=== PATIENT | male | born 1950 | race Caucasian/White ===

== ENCOUNTER 2019-04-20 07:30 | Inpatient (IN) | payer MEDICARE ==
[2019-06-09] MEDS ORDERED: Buffered Lidocaine 1% SYRIN* 1 ML/SYRINGE INTRADERM ONE (13:08)
--- OUTSIDE RECORDS SUMMARY | 2019-06-10 05:36 | XMS REPORT | Continuity of Care Document ---
:1950 External Reference #:[id number] Author Name Abbey Cameron MD (transmitted by agent of provider Adele Jackson ) Address [address] [place] [address] Care Team Providers Name Role Phone Danny Medina P.A. 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 Problems Description No Information Available Social History Type Date Description Comments Sex Unknown ETOH Use Denies alcohol use Tobacco Use Start: Unknown End: Patient is a former smoker Unknown Smoking Status Reviewed: 05/19/19 Patient is a former smoker Exercise Type/Frequency Does not exercise Allergies, Adverse Reactions, Alerts Description No Known Drug Allergies Medications Active Medications SIG Qnty Indications Ordering Provider Date Tlso Brace When out of bed M43.16 Abbey 04/07/2019 after surgery MD Rakesh Orphenadrine Citrate 1 by mouth twice Unknown ER a day as needed 100mg Tablets ER 12HR Oxycodone HCL 1 tab by mouth Unknown 10mg tid as needed Tablets Voltaren apply 2 grams Unknown 1% Gel four times daily as needed Gabapentin 1 by mouth tid Unknown 300mg Capsules Viagra use as needed Unknown 100mg Tablets Trazodone HCL take 2 every Unknown 100mg night at bedtime. Tablets Amlodipine Besylate 1 by mouth every Unknown 10mg day Tablets Zoloft 1 by mouth every Unknown 100mg Tablets day Immunizations Description No Information Available Vital Signs Date Vital Result Comment 05/19/2019 11:07am Height 68 inches 5'8" Weight 180.00 lb Heart Rate 80 /min BP Systolic 120 mmHg BP Diastolic 80 mmHg Pain Level 8 mid back burning feeling BMI (Body Mass Index) 27.4 kg/m2 04/07/2019 11:45am Height 68 inches 5'8" Weight 185.00 lb Heart Rate 91 /min BP Systolic 98 mmHg BP Diastolic 66 mmHg Respiratory Rate 16 /min Pain Level 5 BMI (Body Mass Index) 28.1 kg/m2 Results Test Acquired Date Facility Test Result H/L Range Note Laboratory test 04/15/2019 [facility] Glucose 94 mg/dL Normal 70-100 finding [address] [place] [address] [phone] CBC No Diff 04/13/2019 [facility] White Blood 10.8 Normal 3.5- 10.8 101 [facility] Count 10^3/[place] [address] [phone] Red Blood Count 5.12 10^6/uL Normal 4.18-5.48 Hemoglobin 16.2 g/dL Normal 14.0-18.0 Hematocrit 46 % Normal 42-52 Mean Corpuscular Volume 89 fL Normal 80-94 Mean Corpuscular Hemoglobin 32 pg High 27-31 Mean Corpuscular HGB Conc 36 g/dL Normal 31-36 Red Cell Distribution Width 16 % High 10-15 Platelet Count 209 10^3/uL Normal 150-450 Mean Platelet Volume 9.6 fL Normal 7.4-10.4 Inr/Protime 04/13/2019 [facility] Inr 0.95 Normal 0.82-1.09 1 [address] [place] [address] [phone] Laboratory test 04/13/2019 [facility] Partial 35.3 Normal 26.0 -38.0 finding 101 [facility] [place] [place] [address] Time PTT [phone] Urinalysis 04/13/2019 [facility] Urine Color Ashley Profile [address] [place] [address] [phone] Urine Appearance Clear Urine Specific [place] 1.023 Normal 1.010-1.030 Urine pH 5.0 Normal 5-9 Urine Urobilinogen Negative Negative Urine Ketones Trace Abnormal Negative Urine Protein 1+(30 mg/dL) Abnormal Negative Urine Leukocytes Negative Negative Urine Blood Negative Negative Urine Nitrite Negative Negative Urine Bilirubin Negative Negative Urine Glucose Negative Negative Urine White Blood Cell Trace(0-5/hpf) Absent Urine Red Blood Cell Trace(0-2/hpf) Absent Urine Bacteria Absent Absent Urine Squamous Epithelial Cell Present Abnormal Absent Urine Calcium Carbonate Cryst Present Abnormal Absent Type & Screen 04/13/2019 [facility] Patient Blood Type O Negative [address] [place] [address] [phone] Antibody Screen NEGATIVE Basic Metabolic 04/13/2019 [facility] Sodium 140 mmol/L Normal 135-[address] [place] [address] [phone] Potassium 3.9 mmol/L Normal 3.5-5.0 Chloride 107 mmol/L Normal 101-111 Co2 Carbon Dioxide 28 mmol/L Normal 22-32 Anion Gap 5 mmol/L Normal 2-11 Blood Urea Nitrogen 17 mg/dL Normal 6-24 Creatinine 0.94 mg/dL Normal 0.67-1.17 BUN/Creatinine Ratio 18.1 Normal 8-20 Calcium 9.4 mg/dL Normal 8.6-10.3 Egfr Non- 80.0 >60 Egfr 96.9 >60 2 Glucose 38 mg/dL Critical low 70-100 3 Urine Culture And 04/13/2019 [facility] Urine Culture SEE RESULT [address] [place] [address] [phone] Xray 12/21/2018 [facility]g Spine Entire < pending> [address] Ap/[place] [address] [phone] SP Lumbar Ap//Lat 2-3 Views <pending> CT Spine Lumbar W/O <pending> 1 Standard intensity warfarin therapeutic range: 2.0-3.0 High intensity warfarin therapeutic range: 2.5-3.5 2 Because ethnic data is not always readily available, this report includes an eGFR for both -Americans and non- Americans. The National Kidney Disease Education Program (NKDEP) does not endorse the use of the MDRD equation for patients that are not between the ages of 18 and 70, are , have extremes of body size, muscle mass, or nutritional status, or are non- or non-. According to the National Kidney Foundation, irrespective of diagnosis, the stage of the disease is based on the level of kidney function: Stage Description GFR(mL/min/1.73 m(2)) 1 Kidney damage with normal or decreased GFR 90 2 Kidney damage with mild decrease in GFR 60-89 3 Moderate decrease in GFR 30-59 4 Severe decrease in GFR 15-29 5 Kidney failure <15 (or dialysis) 3 Critical Result GLU:[address] CAMERON at: 17:22:07 by:[email or web address] Read back by:DR CAMERON 4 SEE RESULT BELOW Name: RANDELL KC : [address]: Abbey Cameron MD Acct: [id number] Unit: [id number] AGE: 68 Location: [facility] Re04/13/19 SEX: M Status: REG REF SPEC: [id number] CALEB: 04/13/[address]: Abbey Cameron MD REQ: [id number] RECD: 04/13/19 STATUS: COMP _ SOURCE: URINE SPDESC: ORDERED: Urine Culture Procedure Result Reported Site Urine Culture Final 10/23/19- 1228 ML No Growth (<1,000 CFU/mL) * ML - Main Lab . END OF REPORT DEPARTMENT OF PATHOLOGY, [address] [place] [address] Fabian Garcia M.D. Director [facility] # [id number] Procedures Description No Information Available Medical Devices Description No Information Available Encounters Type Date Location Provider Dx Diagnosis Office Visit 04/07/2019 Neurosurgery [facility] M43.16 Spondylolisthesi 11:30a [facility] MD Rakesh s, lumbar region M48.062 Spinal stenosis, lumbar region with neurogenic claudication Assessments Date Code Description Provider 05/19/2019 M43.16 Spondylolisthesis, lumbar region Abbey Cameron MD 05/19/2019 M48.062 Spinal stenosis, lumbar region with Abbey Cameron MD neurogenic claudication 04/08/2019 M43.16 Spondylolisthesis, lumbar region Abbey Cameron MD 04/08/2019 M48.062 Spinal stenosis, lumbar region with Abbey Cameron MD neurogenic claudication 04/07/2019 M43.16 Spondylolisthesis, lumbar region Abbey Cameron MD 04/07/2019 M48.062 Spinal stenosis, lumbar region with Abbey Cameron MD neurogenic claudication Plan of Treatment Future Appointment(s):06/18/2019 3:00 pm - Abbey Cameron MD at [facility]09/15/2019 1:00 pm - Abbey Cameron MD at [facility]07/16/2019 11:00 am - Abbey Cameron MD at [facility]06/14/2019 7:30 am - Abbey Cameron MD at [facility]05/19/2019 - Vassilmarilu Cameron, MDM43.16 Spondylolisthesis, lumbar [id number] Spinal stenosis, lumbar region with neurogenic claudication Functional Status Description No Information Available Mental Status Description No Information Available Referrals Description No Information Available
--- OUTSIDE RECORDS SUMMARY | 2019-06-10 05:36 | XMS REPORT | Continuity of Care Document ---
:1950 External Reference #:[id number] Author Name Adrian Mckeon DO, MPH Address [address] [place] [address], [address] [place] [address] Care Team Providers Name Role Phone Naomie Worrell FNP - Family Care Team Information [employer] [facility] Problems Description No Information Available Social History Type Date Description Comments Sex Unknown Cigarette Use Current Cigarette Smoker 1/2 Pack Daily ETOH Use Rarely consumes alcohol Tobacco Use Start: Unknown End: Unknown Patient is a former smoker Smoking Status Reviewed: 04/23/19 Patient is a former smoker Allergies, Adverse Reactions, Alerts Description No Known Drug Allergies Medications Active Medications SIG Qnty Indications Ordering Provider Date Celebrex si by mouth 30caps Adrian Mckeon DO, 02/23/2019 200mg Capsules daily as directed MPH chronic pain patient Gabapentin si by mouth 90caps Adrian Mckeon DO, 04/23/2018 300mg three times a day MPH Capsules as directed Oxycodone HCL si by mouth 90tabs Adrian Mckeon DO, 11/03/2013 10mg every 8 hours as MPH Tablets directed chronic pain patient Orphenadrine Citrate si by mouth 60tabs Adrian Mckeon DO, 06/04/2013 ER q12hrs as MPH 100mg Tablets ER directed chronic 12HR pain patient Amlodipine Besylate 1 by mouth daily Unknown 10mg Tablets Mapap Unknown 325mg Tablets Trazodone HCL si by mouth Unknown 100mg every night at Tablets bedtime as directed History Medications Oxycodone HCL si-2 by mouth 180tabs Adrian Mckeon, 02/23/2019 - 5mg every 4 to 6 hours DOPAMELA 04/23/2019 Tablets as directed chronic pain patient Immunizations Description No Information Available Vital Signs Date Vital Result Comment 04/23/2019 10:28am BP Systolic 132 mmHg BP Diastolic 84 mmHg Heart Rate 86 /min Respiratory Rate 20 /min Height 70 inches 5'10" Weight 18.00 lb Pain Level 7 Pain at this time. Pain Level With Medicine 6 on average with meds Pain Level Without Medicine 9 without meds BMI (Body Mass Index) 2.6 kg/m2 03/25/2019 9:18am BP Systolic 136 mmHg BP Diastolic 86 mmHg Heart Rate 84 /min Respiratory Rate 20 /min Height 70 inches 5'10" Weight 182.00 lb Pain Level 7 Pain at this time. 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 Office Visit 02/23/2019 9:15a Main Office as Adrian Mckeon G89.21 Chronic pain due Of 07/24/13 DO, MPH to trauma M54.16 Radiculopathy, lumbar region M54.5 Low back pain 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 Z79.891 group home (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 Office Visit 01/21/2019 9:30a Main Office as Adrian Mckeon G89.21 Chronic pain due Of 07/24/13 DO, MPH to trauma M54.16 Radiculopathy, lumbar region M54.5 Low back pain M99.03 Segmental and somatic dysfunction of lumbar region Z79.891 group home (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 Office Visit 12/22/2018 9:15a Main Office as MckeonAdrian perez, G89.21 Chronic pain due Of 07/24/13 DO, MPH to trauma M54.16 Radiculopathy, lumbar region M54.5 Low back pain 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 Office Visit 11/20/2018 9:15a Main Office as MckeonAdrian perez, G89.21 Chronic pain due Of 07/24/13 DO, MPH to trauma M54.5 Low back pain M54.16 Radiculopathy, lumbar region 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 Assessments Date Code Description Provider 04/23/2019 G89.21 Chronic pain due to trauma Mckeon, Adrian, DO, MPH 04/23/2019 M54.16 Radiculopathy, lumbar region Mckeon, Adrian, DO, MPH 04/23/2019 Z79.891 group home (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 Mckeon, Adrian , DO, MPH 04/23/2019 Z79.891 group home (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 Mckeon, Adrian , DO, MPH 03/25/2019 G89.21 Chronic pain due to trauma Mckeon, Adrian, DO, MPH 03/25/2019 M54.16 Radiculopathy, lumbar region Mckeon, Adrian, DO, MPH 03/25/2019 M54.5 Low back pain Mckeon, Adrian, DO, MPH 03/25/2019 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 Mckeon, Adrian , DO, MPH 03/25/2019 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 Mckeon, Adrian , DO, MPH 02/23/2019 G89.21 Chronic pain due to trauma Mckeon, Adrian, DO, MPH 02/23/2019 M54.16 Radiculopathy, lumbar region Mckeon, Adrian, DO, MPH 02/23/2019 M54.5 Low back pain Mckeon, Adrian, DO, MPH 02/23/2019 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 Mckeon, Adrian , DO, MPH 02/23/2019 Z79.891 group home (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 Mckeon, Adrian , DO, MPH 01/21/2019 G89.21 Chronic pain due to trauma Mckeon, Adrian, DO, MPH 01/21/2019 M54.16 Radiculopathy, lumbar region Mckeon, Adrian, DO, MPH 01/21/2019 M54.5 Low back pain Mckeon, Adrian, DO, MPH 01/21/2019 M99.03 Segmental and somatic dysfunction of lumbar Mckeon, Adrian, DO, MPH region 01/21/2019 Z79.891 group home (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 Mckeon, Adrian , DO, MPH 01/21/2019 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 Mckeon, Adrian , DO, MPH 12/22/2018 G89.21 Chronic pain due to trauma Mckeon, Adrian, DO, MPH 12/22/2018 M54.16 Radiculopathy, lumbar region Mckeon, Adrian, DO, MPH 12/22/2018 M54.5 Low back pain Mckeon, Adrian, DO, MPH 12/22/2018 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 Mckeon, Adrian , DO, MPH 12/22/2018 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 Mckeon, Adrian , DO, MPH 11/20/2018 G89.21 Chronic pain due to trauma Mckeon, Adrian, DO, MPH 11/20/2018 M54.5 Low back pain Mckeon, Adrian, DO, MPH 11/20/2018 M54.16 Radiculopathy, lumbar region Mckeon, Adrian, DO, MPH 11/20/2018 Z79.891 group home (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 Mckeon, Adrian , DO, MPH 11/20/2018 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 Symptoms and complaints discussed and reviewed today. No significant changes in physical findings. Continue current medical pain management.M54.16 Radiculopathy, lumbar regionComments:Chronic. Symptoms and complaints discussed and reviewed today. No changes in physical findings; patient is stable on current medical therapy.Z79.891 group home (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New Labs:Urine Drug Screen, Ordered: 04/23/19Comments:Urine drug screen sample taken. Rapid Point of Care Cup was reviewed in office with patient. Will send out UDT Rapid to [facility] lab for confirmation testing. Urine Drug Testing (UDT) was done today to monitor opiate use and to monitor possible use of illicit substances. I will discuss the results at the next appointment from the Quantitative lab.The following tests were ordered:6 AM, AMPH, KAREN, ART, BUP, CARIS, COCM, ETG, FENT, MCSHSG, OPI, OXY, PCP, TAPEN, XTSY, ZOLP. A urine drug test (UDT) using a rapid screen cup was ordered for this patient and collected on site today. Creatinine has been ordered as well for specimen validity, not for kidney function. Urine Drug Testing is a mandatory component of chronic opioid management, as part of the baseline assessment and ongoing re-assessment of opioid therapy. Per [place] [employer], [place] Non-Acute Pain Medical Treatment Guidelines, section F.3.d.i. This test is to be used in conjunction with other clinical information when decisions are to be made to continue, adjust or discontinue treatment. This information includes clinical observation, results of addiction screening, pill counts, and prescription drug monitoring reports. Preliminary UDT screen results are not final and should not be used to determine patient care or plan of treatment. This sample will be sent out for a more comprehensive quantitative confirmation LCMS study. It is part of the treatment process of prescribing controlled substances and is considered standard of care at this clinic.AllComments:Continue current medical pain management; injection therapy, osteopathic manipulation, PT / modalities, and consults as needed to manage chronic pain.Non - opioid pain management discussed and optionsdiscussed.Side effects discussed; anticipatory guidance given. Patient clearly understand and agree with all medical treatments and suggestions. All medicines prescribed are adequate and appropriate for this patient's complaint of pain, medical history, physical, and personal goals.Goals of Treatment are to provide adequate and appropriate multidisciplinary medical pain management to increase/ maintain patient's quality of life and functionality while maintaining satisfactory side effect profile andminimizing shelter end-organ damage. Importance of regular nutrition throughout the day discussed.Activity as toleratedContinue with PCP Functional Status Description No Information Available Mental Status Description No Information Available Referrals Description No Information Available
--- OUTSIDE RECORDS SUMMARY | 2019-06-10 05:36 | XMS REPORT | Continuity of Care Document ---
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 Medicine Problems Description No Information Available Social History Type Date Description Comments Sex Unknown Cigarette Use Current Cigarette Smoker 1/2 Pack Daily ETOH Use Rarely consumes alcohol Tobacco Use Start: Unknown End: Unknown Patient is a former smoker Smoking Status Reviewed: 05/31/19 Patient is a former smoker Allergies, Adverse [...] - 5mg every 4 to 6 hours PAMELA FOURNIER 04/23/2019 Tablets as directed chronic pain patient Immunizations Description No Information Available Vital Signs Date Vital Result Comment 05/31/2019 9:13am BP Systolic 128 mmHg BP Diastolic 74 mmHg Heart Rate 76 /min Respiratory Rate 20 /min Height 70 inches 5'10" Weight 194.00 lb Pain Level 7 Pain at this time. Pain Level With Medicine 5 on average with meds Pain Level Without Medicine 9 without meds BMI (Body Mass Index) 27.8 kg/m2 04/23/2019 10:28am BP Systolic 132 mmHg BP Diastolic 84 mmHg Heart Rate 86 /min Respiratory Rate 20 /min Height 70 inches 5'10" Weight 18.00 lb Pain Level 7 Pain at this time. Pain Level With Medicine 6 on average with meds Pain Level Without Medicine 9 without meds BMI (Body Mass Index) 2.6 kg/m2 Results Description No Information Available Procedures Date Code Description Status 01/21/2019 88511 Omt 1-2 Body Regions Completed Medical Devices Description No Information Available Encounters Type Date Location Provider Dx Diagnosis Office Visit 04/23/2019 Main Office as Of Adrian Mckeon DO G89.21 Chronic pain due 10:45a 07/24/13 MPH to trauma M54.16 Radiculopathy, lumbar region Z79.891 [facility] (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 Z79.891 [facility] (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 Office Visit 03/25/2019 9:30a Main Office as Adrian Mckeon G89.21 Chronic pain due Of 07/24/13 DO MPH to trauma M54.16 Radiculopathy, lumbar region M54.5 Low back pain Z79.891 [facility] (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 Z79.891 [facility] (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 Office Visit 02/23/2019 9:15a Main Office as Adrian Mckeon G89.21 Chronic pain due Of 07/24/13 DO, MPH to trauma M54.16 Radiculopathy, lumbar region M54.5 Low back pain Z79.891 [facility] (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 Z79.891 [facility] (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 Office Visit 01/21/2019 9:30a Main Office as MckeonAdrian perez, G89.21 Chronic pain due Of 07/24/13 DO, MPH to trauma M54.16 Radiculopathy, lumbar region M54.5 Low back pain M99.03 Segmental and somatic dysfunction of lumbar region Z79.891 [facility] (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 Z79.891 [facility] (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 Office Visit 12/22/2018 9:15a Main Office as Adrian Mckeon G89.21 Chronic pain due Of 07/24/13 DO, MPH to trauma M54.16 Radiculopathy, lumbar region M54.5 Low back pain Z79.891 [facility] (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 Z79.891 [facility] (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 Assessments Date Code Description Provider 05/31/2019 G89.21 Chronic pain due to trauma Mckeon, Adrian, DO, MPH 05/31/2019 M54.16 Radiculopathy, lumbar region Mckeon, Adrian, DO, MPH 05/31/2019 Z79.891 [facility] (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 Mckeon, Adrian , DO, MPH 05/31/2019 Z79.891 [facility] (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 Mckeon, Adrian , DO, MPH 04/23/2019 G89.21 Chronic pain due to trauma Mckeon, Adrian, DO, MPH 04/23/2019 M54.16 Radiculopathy, lumbar region Mckeon, Adrian, DO, MPH 04/23/2019 Z79.891 [facility] (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 Mckeon, Adrian , DO, MPH 04/23/2019 Z79.891 [facility] (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 Mckeon, Adrian , DO, MPH 03/25/2019 G89.21 Chronic pain due to trauma Mckeon, Adrian, DO, MPH 03/25/2019 M54.16 Radiculopathy, lumbar region Mckeon, Adrian, DO, MPH 03/25/2019 M54.5 Low back pain Mckeon, Adrian, DO, MPH 03/25/2019 Z79.891 [facility] (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 Mckeon, Adrian , DO, MPH 03/25/2019 Z79.891 [facility] (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 Mckeon, Adrian , DO, MPH 02/23/2019 G89.21 Chronic pain due to trauma Mckeon, Adrian, DO, MPH 02/23/2019 M54.16 Radiculopathy, lumbar region Mckeon, Adrian, DO, MPH 02/23/2019 M54.5 Low back pain Mckeon, Adrian, DO, MPH 02/23/2019 Z79.891 [facility] (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 Mckeon, Adrian , DO, MPH 02/23/2019 Z79.891 [facility] (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 Mckeon, Adrian , DO, MPH 01/21/2019 G89.21 Chronic pain due to trauma Mckeon, Adrian, DO, MPH 01/21/2019 M54.16 Radiculopathy, lumbar region Mckeon, Adrian, DO, MPH 01/21/2019 M54.5 Low back pain Mckeon, Adrian, DO, MPH 01/21/2019 M99.03 Segmental and somatic dysfunction of lumbar Mckeon, Adrian, DO, MPH region 01/21/2019 Z79.891 [facility] (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 Mckeon, Adrian , DO, MPH 01/21/2019 Z79.891 [facility] (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 Mckeon, Adrian , DO, MPH 12/22/2018 G89.21 Chronic pain due to trauma Mckeon, Adrian, DO, MPH 12/22/2018 M54.16 Radiculopathy, lumbar region Mckeon, Adrian, DO, MPH 12/22/2018 M54.5 Low back pain Mckeon, Adrian, DO, MPH 12/22/2018 Z79.891 [facility] (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 Mckeon, Adrian , DO, MPH 12/22/2018 Z79.891 [facility] (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 Mckeon, Adrian , DO, MPH Plan of Treatment Future Appointment(s):06/29/2019 9:15 am - Adrian Mckeon DO, MPH at Main Office as Of 07/24/1411 Adrian Kelley DO, MPHG89.21 Chronic pain due to traumaComments:Chronic. Symptoms and complaints discussed and reviewed today. No significant changes in physical findings. Continue current medical pain management.M54.16 Radiculopathy, lumbar regionComments:Chronic. Symptoms and complaints discussed and reviewed today. No changes in physical findings; patient is stable on current medical therapy.Z79.891 [facility] (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New Labs:Urine Drug Screen, Ordered: 05/31/19Comments:Urine drug screen sample taken. Rapid Point of [...] and ongoing re-assessment of opioid therapy. Per [place] [employer], [place] Non-Acute Pain Medical Treatment Guidelines, section F.3.d.i. [...] while maintaining satisfactory side effect profile andminimizing chcf end-organ damage. Importance of regular nutrition throughout the day discussed.Activity as toleratedContinue with PCP Functional Status Description No Information Available Mental Status Description No Information Available Referrals Description No Information Available
[2019-06-10] MEDS ORDERED: Lactated Ringers 1000 ML Bag* 1,000 ML IV SCH (06:00)
[2019-06-10] MEDS ORDERED: Acetaminophen TAB* 325 MG PO ONE (06:00)
[2019-06-10] MEDS ORDERED: Acetaminophen TAB* 325 MG ONE (06:23)
[2019-06-10] MEDS ORDERED: Buffered Lidocaine 1% SYRIN* 1 ML/SYRINGE INTRADERM ONE (06:23)
[2019-06-10] MEDS ORDERED: ceFAZolin 2 GM in NS PREMIX(*) 2 GM/100 ML BAG IVPB ONE (06:23)
[2019-06-10] MEDS ORDERED: Bupivacaine 0.25% EPI 200,000* 30 ML SDV ONE (06:34)
[2019-06-10] MEDS ORDERED: Bacitracin INJECTION* 50,000 UNITS ONE (06:34)
[2019-06-10] MEDS ORDERED: fentaNYL* 50 MCG/ML 5 ML VIAL (250 MCG VIAL) ONE (07:05)
[2019-06-10] MEDS ORDERED: Midazolam* 1 MG/ML 2 ML VIAL (2 MG) ONE (07:05)
[2019-06-10] MEDS ORDERED: Succinylcholine* 20 MG/ML 10 ML VIAL ONE (07:06)
[2019-06-10] MEDS ORDERED: Propofol* 10 MG/ML 20 ML BTL ONE (07:06)
[2019-06-10] MEDS ORDERED: Propofol* 500 MG/50 ML BTL ONE (07:06)
[2019-06-10] MEDS ORDERED: Lidocaine 2% PF * 5 ML VIAL ONE (07:06)
[2019-06-10] MEDS ORDERED: Remifentanil* 2 MG VIAL ONE (07:07)
[2019-06-10] MEDS ORDERED: Artificial Tear OPHTH.OINT* 3.5 GM ONE (07:21)
[2019-06-10] MEDS ORDERED: Propofol* 1,000 MG/100 ML BTL ONE (07:22)
[2019-06-10] MEDS ORDERED: KETAMINE HCL* 50 MG/ML 10 ML VIAL ONE (07:55)
[2019-06-10] MEDS ORDERED: EPHEDrine (Pressors)* 50 MG/ML VIAL ONE ×2 (08:22→09:07)
[2019-06-10] MEDS ORDERED: Phenylephrine 10 MG/ML VIAL* 1 ML VIAL ONE (09:07)
[2019-06-10] MEDS ORDERED: diPHENhydraMINE IV* 50 MG/ML 1 ml VIAL (BENADRYL) IV PRN (10:04)
[2019-06-10] MEDS ORDERED: PROCHLORPERAZINE INJ 5 MG/ML 2 ML VIAL IV PRN (10:04)
[2019-06-10] MEDS ORDERED: oxyCODONE TAB* 5 MG TAB PO PRN ×3 (10:04→14:44)
[2019-06-10] MEDS ORDERED: Naloxone* 0.4 MG/ML 1 ML VIAL IV PRN (10:04)
[2019-06-10] MEDS ORDERED: Ondansetron INJ* 2 MG/ML VIAL IV PRN ×2 (10:04→13:00)
[2019-06-10] MEDS ORDERED: Gabapentin CAP(*) 300 MG PO ONE (10:07)
[2019-06-10] MEDS ORDERED: HYDROmorphone INJ1* 1 MG/ML SYRINGE ONE ×3 (10:10→13:18)
[2019-06-10] MEDS ORDERED: Ketorolac INJ* 30 MG/ML 1 ML VIAL ONE (11:46)
[2019-06-10] MEDS ORDERED: Ondansetron INJ* 2 MG/ML VIAL ONE ×2 (11:46→13:18)
[2019-06-10] MEDS ORDERED: Acetaminophen TAB* 325 MG PO PRN (13:00)
[2019-06-10] MEDS ORDERED: Magnesium Hydroxide LIQ* 30 ML UDC PO PRN (13:00)
[2019-06-10] MEDS ORDERED: Gabapentin CAP(*) 300 MG ONE (13:01)
[2019-06-10] MEDS ORDERED: oxyCODONE SR TAB(*) 10 MG TAB.SR ONE (13:01)
[2019-06-10] MEDS ORDERED: Ondansetron ODT TAB* 4 MG ONE (13:02)
[2019-06-10] MEDS: HYDROmorphone INJ1* 1 MG/ML SYRINGE IV PRN ×2 (13:23→14:24)
[2019-06-10] MEDS ORDERED: Albuterol HFA INHALER* 8 gm MDI INH PRN (13:54)
--- NOTE | 2019-06-10 14:31 | CONSULT ---
Consult Consult: INPATIENT PAIN CONSULTATION Karen Og is a 69 year old male. He has had back pain for the past 40 years. He had an episode of discitis and had an L3/4 fusion in 1996. He was started on opioids several years ago, at least 5, possibly longer. He currently sees Dr. Adrian Mckeon. Prior to his hospitalization, he was on oxycodone 10 mg three times a day. He also took Norflex 100 mg BID and gabapentin 300 TID. This past summer, he developed severe pain in his low back radiating down his left leg. He began to need a cane to walk. He saw his doctor and eventually had an MRI of his lumbar spine which showed a listhesis at L4/5 with significant neural foraminal stenosis bilaterally. He was admitted to [facility] June 10, 2019 and had a left L4/5 MIS TLIF with PEK interbody cage. I am asked to see him to assist in pain management. PAST MEDICAL HISTORY: COPD, Depression Allergies Allergy/AdvReac Type Severity Reaction Status Date / Time No Known Allergies Allergy Verified 06/10/19 06:21 Current Medications Acetaminophen (Tylenol Tab*) 975 mg PO ONCE ONE Stop: 06/10/19 06:01 Last Admin: 06/10/19 06:28 Dose: 975 mg Acetaminophen (Tylenol Tab*) 650 mg PO Q4H PRN PRN Reason: MILD PAIN or TEMP > 100.4 Albuterol (Ventolin Hfa Inhaler*) 2 puff INH BID PRN PRN Reason: SOB/WHEEZING Diphenhydramine HCl (Benadryl Iv*) 25 mg IV ONCE PRN PRN Reason: ITCHING Gabapentin (Neurontin Cap(*)) 300 mg PO ONCE ONE Stop: 06/10/19 10:08 Last Admin: 06/10/19 13:06 Dose: 300 mg Gabapentin (Neurontin Cap(*)) 300 mg PO TID PRANAV Hydromorphone HCl (Dilaudid Inj1s*) 0.5 mg IV Q10M PRN PRN Reason: PAIN - SEVERE Last Admin: 06/10/19 14:24 Dose: 0.5 mg Lactated Ringer's (Lactated Ringers 1000 Ml Bag*) 1,000 mls @ 125 mls/hr IV PER RATE PRANAV Last Admin: 06/10/19 06:28 Dose: 125 mls/hr Lidocaine/Sodium Bicarbonate (Buffered Lidocaine 1% Syrin*) 0.2 ml INTRADERM ONCE ONE Stop: 06/09/19 13:09 Last Admin: 06/10/19 06:25 Dose: 0.2 ml Magnesium Hydroxide (Milk Of Magncait Liq*) 30 ml PO DAILY PRN PRN Reason: CONSTIPATION Naloxone HCl (Narcan*) 0.08 mg IV Q2M PRN PRN Reason: severe induced resp depression Ondansetron HCl (Zofran Inj*) 4 mg IV ONCE PRN PRN Reason: NAUSEA/VOMITING Last Admin: 06/10/19 13:21 Dose: 4 mg Ondansetron HCl (Zofran Inj*) 4 mg IV Q6H PRN PRN Reason: NAUSEA/VOMITING Oxycodone HCl (Roxycodone Tab*) 20 mg PO ONCE PRN PRN Reason: SEVERE PAIN Oxycodone HCl (Roxycodone Tab*) 10 mg PO Q6H PRN PRN Reason: PAIN - MODERATE Prochlorperazine Edisylate (Compazine Inj*) 5 mg IV ONCE PRN PRN Reason: NAUSEA/VOMITING Sertraline HCl (Zoloft*) 100 mg PO QAM PRANAV SOCIAL HISTORY: Non smoker, non drinker, occasional marijuana use. Lives alone in a 1 level apartment, a few steps to enter. Has a son in [facility], he lives in [place]. ROS: Denies CP. Last BM was last night Vital Signs Temp Pulse Resp BP Pulse Ox 97.3 F 96 18 122/77 97 06/10/19 12:30 06/10/19 14:15 06/10/19 14:24 06/10/19 14:15 06/10/19 14:15 EXAM: GENERAL: Minimal distress LUNGS: Clear bilaterally HEART: Reg rhythm ABDOMEN: Soft EXTREMITIES: Normal tone NEUROLOGIC: Sensation appears intact. Able to move 4 extremities ASSESSMENT: 1. Left L4/5 MIS TLIF with PEEK interbody Cage 2. Chronic opioid use PLAN: I will increase his oxycodone to 15 mg Q4 PRN. I will add a muscle relaxant, preferably orphenadrine. He has gabapentin ordered. I will add bowel medications. I will follow.
[2019-06-10] MEDS ORDERED: Methocarbamol TAB* 500 MG PO PRN (14:44)
[2019-06-10] MEDS ORDERED: Senna TAB 8.6 mg* TAB PO PRN (14:45)
[2019-06-10] MEDS: Gabapentin CAP(*) 300 MG PO SCH ×2 (15:25→21:20)
[2019-06-10] MEDS: oxyCODONE TAB* 5 MG TAB PO PRN ×2 (16:05→21:21)
--- NOTE | 2019-06-10 16:54 | CONS ---
HOSPITAL MEDICINE CONSULTATION REPORT: DATE OF CONSULT: 06/10/19 PROVIDER: Ya Pickett NP ATTENDING PHYSICIAN WHILE IN THE HOSPITAL: Dr. Cameron. CONSULTING PHYSICIAN: Dr. Enrique Katz (dictated by Ya Pickett NP). REASON FOR CONSULT: Co-management of chronic medical conditions. HISTORY OF PRESENT ILLNESS: Mr. Og is a 69-year-old male with a past medical history significant for COPD, hypertension, depression, spinal stenosis , who presented to [facility] for an elective left L4-L5 MIS TLIF with PEEK cage, iliac bone graft and DBX, pedicle screws. Please see dictated H and P from Dr. Cameron for complete details. In brief, the patient had ongoing pain, failed conservative measures; therefore, opted for a left L4-L5 MIS TLIF with PEEK cage with Dr. Cameron. In the immediate preoperative period, the patient had no complaints. In the immediate post-operative period, the patient complains of mild lower back pain. He denies any recent fever, chills, nausea, vomiting, diarrhea. Denies any abdominal pain. Denies any urinary frequency, urgency, or pain with urination. Denies any cough, congestion, or shortness of breath. Denies any chest pain. Due to the patient's history of hypertension and COPD, Hospital Medicine was asked to co-manage his care during this hospitalization. PAST MEDICAL HISTORY: Significant for: 1. COPD. 2. Hypertension. 3. Depression. 4. Sleep disorder. 5. Spinal stenosis. 6. Psoriasis. 7. Spondylolisthesis. PAST SURGICAL HISTORY: 1. Appendectomy. 2. Tonsillectomy. 3. Cholecystectomy. 4. History of L3-4 fusion. 5. History of neck surgery. HOME MEDICATIONS: Include: 1. Orphenadrine citrate ER 100 mg b.i.d. p.r.n. 2. Oxycodone 10 mg t.i.d. p.r.n. 3. Voltaren gel 1%, 2 g 4 times daily. 4. Gabapentin 300 mg p.o. t.i.d. 5. Viagra as needed. 6. Trazodone 200 mg at bedtime. 7. Amlodipine 10 mg p.o. daily. 8. Zoloft 100 mg p.o. daily. 9. Ventolin HFA inhaler 2 puffs every 4 hours as needed for shortness of breath. ALLERGIES: No known drug allergies. FAMILY HISTORY: No reported history of coronary artery disease or cancer. Mother with a history of diabetes. SOCIAL HISTORY: The patient is . He lives alone. He quit smoking approximately 50 years ago. He reports he only smoked for a couple of years. Denies any alcohol use. Does report occasional marijuana use. Surrogate decision maker in the event he is unable to make his own decisions is his son, Umberto or friend, Gael. He is a full code. REVIEW OF SYSTEMS: A 14-point review of systems was completed. All pertinent positives were mentioned in the HPI. PHYSICAL EXAM: General: At this time, Mr. Og is alert and oriented, resting on the stretcher in PACU. He is in no acute distress. Vital Signs: Blood pressure 122/77, heart rate 96, respirations are 18, O2 saturation 97%, temperature was 97.3. HEENT: Head is atraumatic, normocephalic. Eyes: EOMs are intact. Sclerae anicteric and not pale. Oral mucosa moist. Neck is supple. Lungs are clear to auscultation bilaterally. No wheezes, rales, or rhonchi. Cardiac: S1, S2. Regular rate and rhythm. No murmurs, rubs, or gallops. The abdomen is soft and nontender. Bowel sounds are present x4. Extremities: He is able to move all 4 extremities. Pedal pulses are +2 bilaterally. Radial pulses are +2 bilaterally. Sensation is intact to all 4 extremities. There is no clubbing or cyanosis. Neurologic: He is awake, alert , oriented x3. Speech is clear. Thought process is intact. There are no gross focal deficits. Skin: He does have a dressing that is dry and intact to his lower back. DIAGNOSTIC STUDIES/LAB DATA: CBC from 05/31/19: WBCs were 11.3, RBCs 4.54, hemoglobin 14.0, hematocrit was 41, platelet count was 225. INR was 0.98. Sodium 136, potassium 3.9, chloride 102, carbon dioxide was 28, anion gap of 6, BUN was 15, creatinine 1.06, glucose was 73, calcium 9.4. Urine was within normal limits with exception specific gravity was 1.006. IMPRESSION AND PLAN: Mr. Og is a 69-year-old male with a past medical history significant for hypertension, chronic obstructive pulmonary disease, depression, spinal stenosis, who presented for an elective L4-L5 MIS TLIF with PEEK cage with Dr. Cameron. Our recommendations are as follows: 1. Status post L4-L5 MIS TLIF with PEEK cage. Management per Neurosurgery. PT /OT per Neurosurgery. Pain management per Neurosurgery. 2. Hypertension. I will hold his amlodipine at this time. We will monitor his blood pressure and resume as able. 3. Chronic obstructive pulmonary disease. The patient can have Ventolin inhaler every 4 hours as needed for shortness of breath. 4. FEN: He can have a regular diet. 5. Code status: He is a full code. 6. DVT prophylaxis: As per Neurosurgery. I will place him on SCDs. TIME SPENT: Time spent on this consultation was 45 minutes, greater than half that time was spent at the bedside reviewing events leading thus far to his hospitalization, performing physical exam, and reviewing my plan of care. I have discussed with my attending, Dr. Enrique Katz; he is in agreement with my plan. YA PICKETT, TECHNICAL SERVICE SPECIALIST [id number]/[facility] #: [id number] ZARA
--- NOTE | 2019-06-10 18:52 | PN ---
Progress Note - Progress Note Date of Service: 06/10/19 SOAP: Subjective: []Patient seen this pm. Tolerated procedure well. Ambulated. Not voided yet. Tolerates Po well. Preop back and LE pain resolved. Has incisional pain. Objective: []VSS, Afebrile Wounds s,c,d AAOx3 ANA, CN II-XII grossly intact Motor 5/5 all extremities Sensory grossly intact to light touch Assessment: []69 yom POD#0 Left L4-5 MID TLIF Plan: []Monitor VS, Neurochecks Encourage ambulation. XR in am Dc planning in am DC instructions were given: No lifting, No bending, No driving. Keep incision dry. May shower in 2 days. No baths. Appreciate Dr Stokes's, IM care. Samantha Cameron MD
--- NOTE | 2019-06-10 20:04 | OP ---
DATE OF OPERATION: 06/10/19 - ROOM #335 DATE OF : 52 SURGEON: Abbey Cameron MD BUSINESS ANALYST: LEAH More. The case was done with the assistance of LEAH because of the complexity of the case. ANESTHESIA: General. PRE-OP DIAGNOSES: 1. Degenerative disk disease. 2. Lumbar stenosis. POST-OP DIAGNOSES: 1. Degenerative disk disease. 2. Lumbar stenosis. OPERATIVE PROCEDURE: The patient underwent left L4-5 minimally invasive TLIF with decompressive laminectomy at L4 with foraminotomies, with PEEK interbody expandable cage, iliac crest bone graft from separate incision, DBX putty and local bone graft, with pedicle screws and rods, with intraoperative navigation and intraoperative monitoring. ESTIMATED BLOOD LOSS: 30 cc. COMPLICATIONS: None. SUMMARY: The patient is a very pleasant 69-year-old gentleman with history of a previous anterior lumbar interbody fusion at L3-4 for an infection in the remote past, who presented with adjacent level disease at L4-5 with significant stenosis, retrolisthesis, and extensive degenerative changes with complaints of axial back pain with left more than right lower extremity radiculopathy. After failing conservative treatment modalities, he was offered the option of surgical intervention. After explaining the expectations, limitations, and possible complications of the procedure to the patient and his family including his son with complications including, but not limited to bleeding, infection, risk of injury to adjacent structures, coma, paralysis, , need for additional procedures, anesthesia risks, stroke, blindness, cancer, instability , hardware failure, adjacent level disease, pseudoarthrosis, spinal fluid leak, need for prolonged ICU stay, need for prolonged rehabilitation, need for tracheostomy or gastrostomy, deep venous thrombosis, pulmonary embolism; the patient was agreeable to proceed with surgery and informed consent was obtained. The patient understood that his condition may not improve and in fact may get worse after surgery and that he may need to have additional procedures in the future. He also understood that operative plan may be modified according to intraoperative findings and conditions and that the procedure may be abandoned or done in more than 1 stages. The patient understood that he may require prolonged rehabilitation, prolonged recovery, prolonged ICU stay. DESCRIPTION OF PROCEDURE: The patient was brought to the operating room and was placed under general anesthesia by the anesthesia team. He was carefully positioned prone on the Kyle table and all bony prominences were meticulously padded. His skin was prepped and draped in the standard fashion. After appropriate surgical pause and patient identification, a small incision over the right iliac crest was marked on the skin and after infiltrating the skin with local anesthetic, a #10 surgical blade was used to incise the skin. Through the small incision and with the assistance of a Jamshidi needle, the Corex needle was inserted and iliac crest bone graft was harvested and saved for the arthrodesis part of the procedure. Through the same incision, the navigation star was secured in place and intraoperative O-arm imaging was obtained. The patient's data was transferred to the navigation platform and under stereotactic navigation, the trajectories of the pedicle screws were marked on the skin. The skin was infiltrated with local anesthetic and 2 small paramedian incisions over the L4-5 level were performed with #10 surgical blade. The incision was carried down through the subcutaneous tissue and the pedicles of L4 and L5 were cannulated with assistance of high-speed drill, awl- tip tap, and Calera awl-tip screws were inserted. Then, attention was brought to perform a second fascial incision from the left side and over a series of dilators and with assistance of intraoperative navigation, the METRX tubular retractor was inserted. The intraoperative microscope was brought into the field, and after exposing the medial facet and the left hemilamina as well as the pars, high-speed drill was used to fashion a small osteotomy and a medial facetectomy was performed. Locally harvested bone graft was saved for the arthrodesis part of the procedure. High-speed drill and Kerrison punches were used to perform a contralateral laminectomy at that level as there was significant stenosis encountered as expected from the preoperative MRI. Then, attention was brought to remove part of the ligamentum flavum. Of note, significant adhesions of the ligamentum flavum were found on the dura, and after skeletonizing the medial and superior part of the left L5 pedicle and performing extensive foraminotomy, the left L5 nerve root and the lateral part of the thecal sac were gently identified and retracted medially. Then, a diskectomy was performed in the L4-5 level after incising the annulus fibrosus with #15 surgical blade. The preparation of the disk space was performed with a series of scrapers, pituitary rongeurs, Kerrison punches, and curettes. An 8- mm expandable Elevate cage was then prepared and was packed with a mixture of locally harvested, iliac crest bone graft and DBX, and after filling the disk space with the rest of the graft mixture, the PEEK interbody cage was then gently inserted. The cage was then expanded and after confirmation of meticulous hemostasis, copious irrigation and meticulous inspection, the tubular retractor was retracted and the fascial defect was approximated with interrupted 0 Vicryl sutures. Then, attention was brought to insert 2 rods. After measuring the exact required length, the rods were inserted through the same incisions and secured in place with screw head caps. Intraoperative O-arm imaging was then obtained which confirmed excellent placement of all hardware. The screw head caps were then final tightened and the extenders of the screws were removed as well as the navigation star. The wounds were copiously irrigated. After confirmation of meticulous hemostasis and meticulous inspection, the wounds were closed by layers with 0 interrupted Vicryl sutures to approximate the dorsal fascia defects and 2-0 inverted interrupted Vicryl sutures to approximate the subcutaneous tissue. The skin was then covered with Dermabond and sterile dressings. At the end of the procedure, all counts were reported to be correct. The patient remained hemodynamically stable throughout the case and intraoperative electrophysiological monitoring was stable throughout the case. The patient was then turned supine, was extubated, and was transferred to Recovery in excellent condition. [id number]/[facility] #: [id number] ZARA
[2019-06-10] MEDS: Docusate CAP* 100 MG PO SCH (21:21)
--- NOTE | 2019-06-10 23:33 | PN ---
Progress Note - Progress Note Date of Service: 06/10/19 Note: Patient seen and examined. Doing very well. Ambulates. Voids, Tolerates PO well. Wants to go home. AAOx3, ANA, CN II-XII grossly intact Motor 5/5 Sensory grossly intact Plan: Encourage ambulation. Possible DC in am. Appreciate IM, Dr Stokes's care. Samantha Cameron MD
[2019-06-11] MEDS: Docusate CAP* 100 MG PO SCH (08:35)
[2019-06-11] MEDS: Gabapentin CAP(*) 300 MG PO SCH (08:35)
[2019-06-11] MEDS ORDERED: Influenza VAC *QUAD* 2019-20* 0.5 ML SYRINGE IM ONE (09:00)
[2019-06-11] MEDS ORDERED: Sertraline* 100 MG TAB PO SCH (09:00)
[2019-06-11] MEDS: oxyCODONE TAB* 5 MG TAB PO PRN (10:39)
[2019-06-11 11:32] VITALS: BP 137/73
--- NOTE | 2019-06-12 03:10 | DS ---
DISCHARGE SUMMARY: DATE OF ADMISSION: 06/10/19 DATE OF DISCHARGE: 06/11/19 PROVIDER: Ya Pickett NP PRIMARY CARE PROVIDER: Beverly Stafford NP PRIMARY NEUROSURGEON: Dr. Cameron. ATTENDING PHYSICIAN WHILE IN THE HOSPITAL: Enrique Katz MD* (dictated by Ya Pickett NP) PRIMARY DIAGNOSIS: Status post lumbar minimally invasive transforaminal interbody lumbar fusion with PEEK cage. SECONDARY DIAGNOSES: 1. Chronic obstructive pulmonary disease. 2. Hypertension. 3. Depression. 4. Sleep disorder. 5. Spinal stenosis. 6. Psoriasis. STUDIES COMPLETED WHILE IN THE HOSPITAL: He had an x-ray of the lumbar spine on 06/11/19, radiologist's impression: Status post spinal fusion, degenerative disk disease, and osteoarthritis. DISCHARGE MEDICATIONS: New home medications: 1. Oxycodone 10 mg every 4 hours as needed for moderate pain, dispensed #9. 2. Oxycodone 5 mg to take in combination with the 10 for severe pain every 4 hours, dispensed #18 three-day supply, [facility] #[id number]. 3. Robaxin 500 mg p.o. t.i.d., dispensed #9 tablets. 4. Senna 8.6 two tablets at bedtime. 5. Docusate 100 mg p.o. b.i.d. Continued home medications: 1. Trazodone 100 mg at bedtime. 2. Celebrex 100 mg p.o. daily. 3. Amlodipine 10 mg p.o. daily. 4. Viagra 100 mg as needed. 5. Sertraline 100 mg p.o. daily. 6. Gabapentin 300 mg t.i.d. 7. Albuterol 2 puffs q.4 hours as needed for shortness of breath. Discontinued medication: Orphenadrine 100 mg b.i.d. HISTORY OF PRESENT ILLNESS AND HOSPITAL COURSE: Mr. Og is a 69-year-old male with a past medical history significant for COPD, hypertension, depression , spinal stenosis, who presented to [facility] for an elective left L4-L5 MIS TLIF with PEEK cage with Dr. Cameron due to chronic back pain for which he failed conservative measures. Please see dictated H and P from Dr. Cameron complete details. In brief, the patient had ongoing pain, failed conservative measures; therefore, opted to have L4-L5 MIS TLIF with PEEK cage. During this hospitalization, the patient did undergo the surgical procedure of L4- L5 MIS TLIF with PEEK cage with Dr. Cameron. The surgery went well with no immediate adverse effects. The patient is feeling well. His pain is well controlled with current pain regimen and at this time the patient is stable for discharge home. He has no evidence of numbness and tingling in his arms or legs. No saddle anesthesia. No difficulty with urination or loss of bowel control. The patient denies any fever, chills, chest pain, shortness of breath. Denies any nausea, vomiting, diarrhea, or abdominal pain. He denies any urinary frequency, urgency, or pain with urination. At this time, the patient is stable for discharge home. REVIEW OF SYSTEMS: A 14-point review of systems is completed and all pertinent positives are mentioned in the hospital course. PHYSICAL EXAMINATION: General: At this time, Mr. Og is alert and oriented , sitting on the edge of his hospital bed, he is in no acute distress. Vital Signs: Blood pressure 137/73, heart rate 98, respirations 16, O2 saturation 97% , temperature was 98.1. HEENT: Head is atraumatic, normocephalic. Eyes: EOMs are intact. Sclerae anicteric and not pale. Oral mucosa is moist. Neck is supple. Lungs are clear to auscultation bilaterally. No wheezes, rales, or rhonchi. Cardiac: S1, S2. Regular rate and rhythm. No murmurs, rubs, or gallops. Abdomen is soft and nontender. Bowel sounds are present x4. Extremities: He is able to move all 4 extremities. There is no clubbing or cyanosis. There are no sensation deficits. Pedal pulses are +2 bilaterally. Radial pulses are +2 bilaterally. Back: Dressing is dry and intact to his lower lumbar spine. Neurologic: He is awake, alert, and oriented x3. Speech is clear. Thought process is intact. There are no gross focal deficits. Skin : He does have a dry and intact dressing to his lower back. At this time, Mr. Og is stable for discharge home. DISCHARGE PLAN: Mr. Og will be discharged home with activity restrictions, no bending, no lifting, and no driving. 1. Status post minimally invasive transforaminal interbody lumbar fusion, L4- L5 with PEEK cage. The patient has been instructed by Dr. Cameron no bending , no lifting, and no driving. He should follow up with Dr. Cameron in 7 to 14 days. He will need to call the office on Friday for an appointment. I did speak to Dr. Stokes and Dr. Mckeon about his chronic pain management regimen. I will dispense the patient's oxycodone 10 mg #9 and oxycodone 5 mg #18 due to his acute pain from his recent surgery. He is to contact Dr. Mckeon on Friday for further management of his acute pain postsurgical spinal fusion. The patient and son are aware of this plan. The patient was also prescribed Robaxin 500 mg p.o. t.i.d. x3 days #9 tablets and the patient again was instructed to follow up with Dr. Mckeon for further management of his muscle relaxers. The patient should call Dr. Mckeon on Friday for further recommendations on pain medications and muscle relaxers. The patient and his son verbalized understanding. We did discontinue his orphenadrine as the patient reports he is unable to get this medication due to insurance not approving it. 2. Hypertension. The patient should continue on his amlodipine as previously prescribed. 3. Obstructive sleep apnea. The patient should continue on his Ventolin inhaler as needed for shortness of breath. 4. Depression. The patient should continue on Zoloft 100 mg p.o. daily. The patient was instructed no bending, no lifting, and no driving. He is to follow up with Dr. Cameron in 7 to 14 days. He should follow up with his primary care provider in 1 to 2 weeks and he should follow up with Dr. Mckeon, his chronic pain management doctor; he should call his office on Friday for further recommendations on pain management. The patient and son both verbalized understanding. The patient may shower in 2 days. He is to keep his incision clean and dry. The patient should return to the emergency room for any severe uncontrolled pain, fever, chills, chest pain, or shortness of breath. The patient should call Dr. Cameron if he develops any drainage, redness, or pain around the surgical incision sites. The patient and son both verbalized understanding. CONDITION ON DISCHARGE: Stable. DISPOSITION ON DISCHARGE: Home. I have discussed this with my attending, Dr. Enrique Katz; he is in agreement with my plan. YA PICKETT NP [id number]/CPS #: [id number] ZARA
== END 2019-06-11 12:35 | disposition home or self-care (01) | DRG 460 ==
LOC: AA 06-10 05:32 → SSU 06-10 14:32
PROVIDERS: ADMIT Neurological Surgery; ATTEND Internal Medicine
PROC: 00NY0ZZ Release Lumbar Spinal Cord, Open Approach (ICD-10-PCS; 2019-06-10)
PROC: 0QB23ZZ Excision of Right Pelvic Bone, Percutaneous Approach (ICD-10-PCS; 2019-06-10)
PROC: 4A11X4G Monitoring of Peripheral Nervous Electrical Activity, Intraoperative, External Approach (ICD-10-PCS; 2019-06-10)
PROC: 8E0WXBZ Computer Assisted Procedure of Trunk Region (ICD-10-PCS; 2019-06-10)
PROC: 0SG00AJ Fusion of Lumbar Vertebral Joint with Interbody Fusion Device, Posterior Approach, Anterior Column, Open Approach (ICD-10-PCS; principal; 2019-06-10 07:30)
DX: M51.36 Other intervertebral disc degeneration, lumbar region (principal); M48.062 Spinal stenosis, lumbar region with neurogenic claudication; J44.9 Chronic obstructive pulmonary disease, unspecified; G89.29 Other chronic pain; I10 Essential (primary) hypertension; F32.9 Major depressive disorder, single episode, unspecified; M43.16 Spondylolisthesis, lumbar region; L40.9 Psoriasis, unspecified; Z87.891 Personal history of nicotine dependence; Z23 Encounter for immunization; Z98.1 Arthrodesis status; Z88.8 Allergy status to other drugs, medicaments and biological substances
CPT/HCPCS: 72100; 76000; 90686; A9270-GY; C1713; C9359; J0330; J0690; J1170; J1885; J2250; J2405; J2704; J3010